=== PATIENT | female | born 1945 | race Caucasian/White ===

== ENCOUNTER 2017-01-19 15:06 | Emergency (ER) | payer MEDICARE, BC ==
--- NOTE | 2017-01-19 15:58 | Emergency Department Record ---
History of Present Illness - General Chief complaint: Cold Stated complaint: COLD Time Seen by Provider: 01/19/17 15:42 Source: Patient Mode of Arrival: Ambulatory Limitations: No limitations - History of Present Illness Initial comments: pt has a productive yellow cough and congestion. so does his . no sob or fever sweats or chills. MD complaint: Sore throat Onset/Timin -: Days(s) Location: Nose Severity: Mild Consistency: Intermittent Improves with: None Worsens with: None Associated Symptoms: Cough, Pain with swallowing, Rhinorrhea, Sore throat, Other - Related Data Home Medications Medication Instructions Recorded Confirmed Last Taken Levothyroxine Sodium 125 mcg PO DAILY 12/20/15 01/19/17 12/20/15 [Levothyroxine Sodium] Lorazepam [Lorazepam] 0.5 mg PO DAILY 12/20/15 01/19/17 12/20/15 Multivitamin [Daily Multiple 1 tab PO DAILY 12/20/15 01/19/17 12/20/15 Vitamin] Risperidone [Risperidone] 2 mg PO DAILY 12/20/15 01/19/17 12/20/15 Previous Rx's Medication Instructions Recorded Clindamycin HCl [Cleocin HCl] 300 mg PO Q6H #39 capsule 12/20/15 Fluconazole [Diflucan] 150 mg PO ONCE #1 tab 12/20/15 Azithromycin [Zithromax] 250 mg PO DAILY #6 tab 01/19/17 Benzonatate [Tessalon] 1 cap PO Q8H PRN #14 cap 01/19/17 Allergies Allergy/AdvReac Type Severity Reaction Status Date / Time Sulfa (Sulfonamide Allergy RASH Verified 01/19/17 15:42 Antibiotics) azithromycin AdvReac DIARRHEA Verified 01/19/17 15:42 cephalexin monohydrate AdvReac PT UNSURE Verified 01/19/17 15:42 [From Keflex] OF REACTION Travel Screening - Travel/Exposure Within Last 30 Days Have you traveled within the last 30 days?: No Review of Systems Reviewed: No additional complaints except as noted below Constitutional: Reports: As per HPI. Denies: Chills, Fever, Malaise, Night sweats, Weakness, Weight change Eyes: Reports: As per HPI. Denies: Eye discharge, Eye pain, Photophobia, Vision change ENT: Reports: As per HPI. Denies: Congestion, Dental pain, Ear pain, Epistaxis , Hearing loss, Throat pain Respiratory: Reports: As per HPI. Denies: Cough, Dyspnea, Hemoptysis, Stridor, Wheezes Cardiovascular: Reports: As per HPI. Denies: Arrhythmia, Chest pain, Dyspnea on exertion, Edema, Murmurs, Orthopnea, Palpitations, Paroxysmal nocturnal dyspnea, Rheumatic Fever, Syncope Endocrine: Reports: As per HPI. Denies: Fatigue, Heat or cold intolerance, Polydipsia, Polyuria Gastrointestinal: Reports: As per HPI. Denies: Abdominal pain, Constipation, Diarrhea, Hematemesis, Hematochezia, Melena, Nausea, Vomiting Genitourinary: Reports: As per HPI. Denies: Abnormal menses, Discharge, Dyspareunia, Dysuria, Frequency, Hematuria, Incontinence, Retention, Urgency Musculoskeletal: Reports: As per HPI. Denies: Arthralgia, Back pain, Gout, Joint swelling, Myalgia, Neck pain Skin: Reports: As per HPI. Denies: Bruising, Change in color, Change in hair/ nails, Lesions, Pruritus, Rash Neurological: Reports: As per HPI. Denies: Abnormal gait, Confusion, Headache, Numbness, Paresthesias, Seizure, Tingling, Tremors, Vertigo, Weakness Psychiatric: Reports: As per HPI. Denies: Anxiety, Auditory hallucinations, Depression, Homicidal thoughts, Suicidal thoughts, Visual hallucinations Hematological/Lymphatic: Reports: As per HPI. Denies: Anemia, Blood Clots, Easy bleeding, Easy bruising, Swollen glands Past Medical History - SOCIAL HISTORY Smoking Status: Never smoker Alcohol Use: None Drug Use: None - RESPIRATORY Hx Respiratory Disorders: No - NEURO Hx Neuro Disorders: Yes Hx Brain Tumor: Yes - GI Hx GI Disorders: No - Hx Genitourinary Disorders: No - ENDOCRINE Hx Endocrine Disorders: Yes Hx Thyroid Disease: Yes - MUSCULOSKELETAL Hx Musculoskeletal Disorders: No - PSYCH Hx Psych Problems: No - HEMATOLOGY/ONCOLOGY Hx Hematology/Oncology Disorders: No Family Medical History Any Significant Family History?: No Physical Exam - General General Appearance: Alert, Oriented x3, Cooperative, Mild distress - Head Head exam: Normal inspection - Eye Eye exam: Normal appearance, PERRL, EOMI Pupils: Normal accommodation - ENT ENT exam: Normal exam, Mucous membranes moist, Normal external ear exam, Normal orophraynx Ear exam: Normal external inspection. negative: External canal tenderness Nasal Exam: Normal inspection. negative: Discharge, Sinus tenderness Mouth exam: Normal external inspection, Tongue normal Teeth exam: Normal inspection. negative: Dental caries Throat exam: Normal inspection. negative: Tonsillar erythema, Tonsillar exudate - Neck Neck exam: Normal inspection, Full ROM. negative: Tenderness - Respiratory Respiratory exam: Normal lung sounds bilaterally. negative: Respiratory distress - Cardiovascular Cardiovascular Exam: Regular rate, Normal rhythm, Normal heart sounds - GI/Abdominal GI/Abdominal exam: Soft, Normal bowel sounds. negative: Tenderness - Rectal Rectal exam: Deferred - exam: Deferred - Extremities Extremities exam: Normal inspection, Full ROM, Normal capillary refill. negative: Tenderness - Back Back exam: Reports: Normal inspection, Full ROM. Denies: Muscle spasm, Rash noted, Tenderness - Neurological Neurological exam: Alert, CN II-XII intact, Normal gait, Oriented X3 - Psychiatric Psychiatric exam: Normal affect, Normal mood - Skin Skin exam: Dry, Intact, Normal color, Warm Course Vital Signs 01/19/17 15:38 Temperature 98.4 F Pulse Rate 91 H Respiratory 18 Rate Blood Pressure 124/64 Pulse Ox 98 - Reevaluation(s) Reevaluation #1: 01/19/17 15:58 pt prefers zithromax Disposition Disposition: Discharge Clinical Impression: Bronchitis Disposition: Home, Self-Care Condition: (1) Good Instructions: Acute Bronchitis (ED) Additional Instructions: follow up with family doctor. return sooner if worse. push fluids. Prescriptions: Azithromycin [Zithromax] 250 mg PO DAILY #6 tab Benzonatate [Tessalon] 1 cap PO Q8H PRN #14 cap PRN Reason: Cough Forms: Patient Portal Access
== END 2017-01-19 16:24 | disposition home or self-care (01) ==
LOC: ER 15:06
DX: J20.9 Acute bronchitis, unspecified (principal)
CPT/HCPCS: 99282

== ENCOUNTER 2017-01-30 06:50 | Emergency (ER) | payer MEDICARE, BC ==
[2017-01-30 07:25] LABS: URINE APPEARANCE CLEAR; URINE BILIRUBIN NEGATIVE (NEGATIVE); URINE BLOOD TRACE-I (NEGATIVE); URINE COLOR YELLOW; URINE GLUCOSE (UA) NEGATIVE (NEGATIVE); URINE KETONE NEGATIVE (NEGATIVE); URINE LEUKOCYTE ESTERASE SMALL (NEGATIVE); URINE NITRITE NEGATIVE (NEGATIVE); URINE PROTEIN NEGATIVE (NEGATIVE); URINE UROBILINOGEN 0.2 E.U./dL (0.20 - 1.00)
--- NOTE | 2017-01-30 07:25 | Emergency Department Record ---
History of Present Illness - General Chief Complaint: Cough Stated Complaint: COUGH/UTI/POISON LUIS Time Seen by Provider: 01/30/17 07:01 Mode of Arrival: Ambulatory - History of Present Illness Severity: Mild Severity scale (1-10): 2 Consistency: Intermittent - Related Data Home Medications Medication Instructions Recorded Confirmed Last Taken Levothyroxine Sodium 125 mcg PO DAILY 12/20/15 01/30/17 12/20/15 [Levothyroxine Sodium] Lorazepam [Lorazepam] 0.5 mg PO DAILY 12/20/15 01/30/17 12/20/15 Multivitamin [Daily Multiple 1 tab PO DAILY 12/20/15 01/30/17 12/20/15 Vitamin] Risperidone [Risperidone] 2 mg PO DAILY 12/20/15 01/30/17 12/20/15 Previous Rx's Medication Instructions Recorded Clindamycin HCl [Cleocin HCl] 300 mg PO Q6H #39 capsule 12/20/15 Fluconazole [Diflucan] 150 mg PO ONCE #1 tab 12/20/15 Benzonatate [Tessalon] 1 cap PO Q8H PRN #14 cap 01/19/17 Allergies Allergy/AdvReac Type Severity Reaction Status Date / Time Sulfa (Sulfonamide Allergy RASH Verified 01/30/17 07:17 Antibiotics) azithromycin AdvReac DIARRHEA Verified 01/30/17 07:17 cephalexin monohydrate AdvReac PT UNSURE Verified 01/30/17 07:17 [From Keflex] OF REACTION Travel Screening - Travel/Exposure Within Last 30 Days Have you traveled within the last 30 days?: No Past Medical History - SOCIAL HISTORY Smoking Status: Never smoker Alcohol Use: None Drug Use: None - RESPIRATORY Hx Respiratory Disorders: No - NEURO Hx Neuro Disorders: Yes Hx Brain Tumor: Yes - GI Hx GI Disorders: No - Hx Genitourinary Disorders: No - ENDOCRINE Hx Endocrine Disorders: Yes Hx Thyroid Disease: Yes - MUSCULOSKELETAL Hx Musculoskeletal Disorders: No - PSYCH Hx Psych Problems: No - HEMATOLOGY/ONCOLOGY Hx Hematology/Oncology Disorders: No Family Medical History Any Significant Family History?: No Course Vital Signs 01/30/17 07:10 Temperature 98.9 F Pulse Rate [ 90 Pulse Ox Probe] Respiratory 18 Rate Blood Pressure 138/69 [Left Arm] Pulse Ox 96 Disposition Forms: Patient Portal Access
[2017-01-30 07:33] LABS: URINE BACTERIA 2+
--- NOTE | 2017-01-30 07:35 | Emergency Department Record ---
History of Present Illness - General Chief Complaint: Cough Stated Complaint: COUGH/UTI/POISON LUIS Time Seen by Provider: 01/30/17 07:01 Mode of Arrival: Ambulatory - History of Present Illness Initial Comments: patient here with frequent urination which started yesterday AM and she was treated with zithromycin for 10 days and finished 2 days ago this was for bronchitis. Patient states she is still coughing and her had the same cough and is getting better. She also has lower abd pain bilateral slight discomfort. 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 Also had radiation. Appendectomy. Ankle fracture 2010. hypothyrioidism, respirdal for anxiety or depression. Poison luis patch on the left wrist and she is using calamine. 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 Severity: Mild Severity scale (1-10): 2 Consistency: Intermittent Associated Symptoms: Cough - Related Data Home Medications Medication Instructions Recorded Confirmed Last Taken Levothyroxine Sodium 125 mcg PO DAILY 12/20/15 01/30/17 12/20/15 [Levothyroxine Sodium] Lorazepam [Lorazepam] 0.5 mg PO DAILY 12/20/15 01/30/17 12/20/15 Multivitamin [Daily Multiple 1 tab PO DAILY 12/20/15 01/30/17 12/20/15 Vitamin] Risperidone [Risperidone] 2 mg PO DAILY 12/20/15 01/30/17 12/20/15 Previous Rx's Medication Instructions Recorded Clindamycin HCl [Cleocin HCl] 300 mg PO Q6H #39 capsule 12/20/15 Fluconazole [Diflucan] 150 mg PO ONCE #1 tab 12/20/15 Benzonatate [Tessalon] 1 cap PO Q8H PRN #14 cap 01/19/17 Levofloxacin [Levaquin] 500 mg PO DAILY #10 tablet 01/30/17 Allergies Allergy/AdvReac Type Severity Reaction Status Date / Time Sulfa (Sulfonamide Allergy RASH Verified 01/30/17 07:17 Antibiotics) azithromycin AdvReac DIARRHEA Verified 01/30/17 07:17 cephalexin monohydrate AdvReac PT UNSURE Verified 01/30/17 07:17 [From Flare Code] OF REACTION Travel Screening - Travel/Exposure Within Last 30 Days Have you traveled within the last 30 days?: No Review of Systems Reviewed: No additional complaints except as noted below Constitutional: Reports: As per HPI. Denies: Chills, Fever, Malaise, Night sweats, Weakness, Weight change Eyes: Reports: As per HPI. Denies: Eye discharge, Eye pain, Photophobia, Vision change ENT: Reports: As per HPI, Congestion. Denies: Dental pain, Ear pain, Epistaxis , Hearing loss, Throat pain Respiratory: Reports: As per HPI, Cough. Denies: Dyspnea, Hemoptysis, Stridor, Wheezes Cardiovascular: Reports: As per HPI. Denies: Arrhythmia, Chest pain, Dyspnea on exertion, Edema, Murmurs, Orthopnea, Palpitations, Paroxysmal nocturnal dyspnea, Rheumatic Fever, Syncope Endocrine: Reports: As per HPI. Denies: Fatigue, Heat or cold intolerance, Polydipsia, Polyuria Gastrointestinal: Reports: As per HPI, Abdominal pain (just slight discomfort ) . Denies: Constipation, Diarrhea, Hematemesis, Hematochezia, Melena, Nausea, Vomiting Genitourinary: Reports: As per HPI. Denies: Abnormal menses, Discharge, Dyspareunia, Dysuria, Frequency, Hematuria, Incontinence, Retention, Urgency Musculoskeletal: Reports: As per HPI. Denies: Arthralgia, Back pain, Gout, Joint swelling, Myalgia, Neck pain Skin: Reports: As per HPI. Denies: Bruising, Change in color, Change in hair/ nails, Lesions, Pruritus, Rash Neurological: Reports: As per HPI. Denies: Abnormal gait, Confusion, Headache, Numbness, Paresthesias, Seizure, Tingling, Tremors, Vertigo, Weakness Psychiatric: Reports: As per HPI. Denies: Anxiety, Auditory hallucinations, Depression, Homicidal thoughts, Suicidal thoughts, Visual hallucinations Hematological/Lymphatic: Reports: As per HPI. Denies: Anemia, Blood Clots, Easy bleeding, Easy bruising, Swollen glands Past Medical History - SOCIAL HISTORY Smoking Status: Never smoker Alcohol Use: None Drug Use: None - RESPIRATORY Hx Respiratory Disorders: No - NEURO Hx Neuro Disorders: Yes Hx Brain Tumor: Yes - GI Hx GI Disorders: No - Hx Genitourinary Disorders: No - ENDOCRINE Hx Endocrine Disorders: Yes Hx Thyroid Disease: Yes - MUSCULOSKELETAL Hx Musculoskeletal Disorders: No - PSYCH Hx Psych Problems: No - HEMATOLOGY/ONCOLOGY Hx Hematology/Oncology Disorders: No Family Medical History Any Significant Family History?: No Physical Exam - General General Appearance: Alert, Oriented x3, Cooperative, No acute distress - Head Head exam: Normal inspection - Eye Eye exam: Normal appearance, PERRL Pupils: Normal accommodation - ENT ENT exam: Normal exam, Mucous membranes moist, Normal external ear exam, Normal orophraynx, TM's normal bilaterally Ear exam: Normal external inspection. negative: External canal tenderness Nasal Exam: Normal inspection. negative: Discharge, Sinus tenderness Mouth exam: Normal external inspection, Tongue normal Teeth exam: Normal inspection. negative: Dental caries Throat exam: Normal inspection. negative: Tonsillar erythema, Tonsillar exudate - Neck Neck exam: Normal inspection, Full ROM. negative: Tenderness - Respiratory Respiratory exam: Normal lung sounds bilaterally. negative: Respiratory distress - Cardiovascular Cardiovascular Exam: Regular rate, Normal rhythm, Normal heart sounds - GI/Abdominal GI/Abdominal exam: Soft, Normal bowel sounds. negative: Distended, Guarding, Rebound, Rigid, Tenderness - Rectal Rectal exam: Deferred - exam: Deferred - Extremities Extremities exam: Normal inspection, Full ROM, Normal capillary refill. negative: Tenderness - Back Back exam: Reports: Normal inspection, Full ROM. Denies: Muscle spasm, Rash noted, Tenderness - Neurological Neurological exam: Alert, Normal gait, Oriented X3, Reflexes normal - Psychiatric Psychiatric exam: Normal affect, Normal mood - Skin Skin exam: Dry, Intact, Normal color, Warm Course Vital Signs 01/30/17 07:10 Temperature 98.9 F Pulse Rate [ 90 Pulse Ox Probe] Respiratory 18 Rate Blood Pressure 138/69 [Left Arm] Pulse Ox 96 Medical Decision Making - Data Complexity MDM Data: Labs Ordered and/or Reviewed (WBC 7,100, Urine WBC 3-5 and few sterling few epi few rbc), X-Ray Ordered and/or Reviewed (right lung infiltrate) - Lab Data Result diagrams: 01/30/17 07:54 01/30/17 07:54 Disposition Clinical Impression: Pneumonia Qualifiers: Pneumonia type: due to unspecified organism Laterality: right Lung location: middle lobe of lung Qualified Code(s): J18.1 - Lobar pneumonia, unspecified organism UTI (urinary tract infection) Qualifiers: Urinary tract infection type: acute cystitis Hematuria presence: without hematuria Qualified Code(s): N30.00 - Acute cystitis without hematuria Disposition: Home, Self-Care Condition: (1) Good Instructions: Community-acquired Pneumonia (ED), Urinary Tract Infection in Women (ED) Additional Instructions: follow up with family in 2 days return to ED if worse Prescriptions: Levofloxacin [Levaquin] 500 mg PO DAILY #10 tablet Forms: Patient Portal Access Time of Disposition: 09:03
[2017-01-30 07:58] LABS: BASO % 0.4 % (0-6); GRAN % 75.1 % (47-80); HEMATOCRIT 43.5 % (35.0-47.0); HEMOGLOBIN 13.9 gm/dl (11.6-16.0); LYMPH % 11.4 % (16-45); MEAN CELL VOLUME 93.1 fl (81-97); MEAN CORPUSCULAR HEMOGLOBIN 29.8 pg (27-33); MEAN PLATELET VOLUME 8.8 fl (7.4-10.4); MONO % 12.1 % (0-9); PLATELET COUNT 210 K/uL (130-400); RED BLOOD COUNT 4.67 M/uL (3.80-5.40); RED CELL DISTRIBUTION WIDTH 14.3 % (11.5-14.5); WHITE BLOOD COUNT W/O DIFF 7.1 K/uL (4.2-12.2)
[2017-01-30 08:13] LABS: ANION GAP 8.8 (7-16); BLOOD UREA NITROGEN 8 mg/dL (7-17); CARBON DIOXIDE 25.2 mmol/L (22-30); CREATININE 0.7 mg/dL (0.52-1.04); EST GLOMERULAR FILTRATION RATE > 60 ml/min; GLUCOSE,RANDOM 105 mg/dL (70-110)
[2017-01-30] MEDS ORDERED: CIPROFLOXACIN HCL 500 MG TABLET PO ONE (08:20)
--- NOTE | 2017-02-04 13:54 | RADIOLOGY REPORT ---
EXAM: CHEST, TWO VIEWS HISTORY: COUGH FOR TWENTY DAYS, ON ANTIBIOTICS. TECHNIQUE: PA and lateral views of the chest were obtained. Comparison: None. FINDINGS: The heart size is normal. There is some mild opacity just lateral to the inferior aspect of the right hilum probably representing a small amount of infiltrate in this location. Follow-up films suggested to demonstrate clearing. The left lung appears expanded and clear. No pleural effusion or pneumothorax evident. Thoracic curve to the right with hypertrophic spurring in the spine. IMPRESSION: 1. SOME MILD INFILTRATE LATERAL TO THE RIGHT HILUM PROBABLY REPRESENTING A PATCH OF INFILTRATE RATHER THAN SUBTLE MASS. FOLLOW-FILMS SUGGESTED TO DEMONSTRATE CLEARING. 2. THORACIC CURVE TO THE RIGHT WITH HYPERTROPHIC SPURRING IN THE SPINE. JOB NUMBER: [id number] MTDD
== END 2017-01-30 09:28 | disposition home or self-care (01) ==
LOC: ER 06:50
DX: J18.1 Lobar pneumonia, unspecified organism (principal); N30.00 Acute cystitis without hematuria; L23.7 Allergic contact dermatitis due to plants, except food
CPT/HCPCS: 71020; 80048; 81001; 85025; 99283; 99284

== ENCOUNTER 2018-07-23 05:00 | Emergency (ER) | payer MEDICARE, BC ==
[2018-07-23] MEDS: IPRATROPIUM/ALBUTEROL (0.5MG/3MG) NEB INH ONE (05:11)
--- NOTE | 2018-07-23 05:14 | Emergency Department Record ---
History of Present Illness - General Chief Complaint: Shortness of breath Stated Complaint: TRUPTI Time Seen by Provider: 07/23/18 05:01 Source: Patient, Family Mode of Arrival: Ambulatory Limitations: No limitations - History of Present Illness Initial Comments: 72 yo female presents with a sore throat and cough for one week. The cough has felt productive but she has not looked at the sputum. The throat has been sore the whole time as well. She is unaware of any fever. No vomiting or diarrhea. No chest pain. She reports she has a history of pneumonia. She did see her doctor on Thursday. She reports a chest XR was performed and she was told it was negative at that time. She has had swollen glands during the week as well. MD Complaint: Cough, Shortness of breath -: Week(s) Severity: Moderate Quality: Aching (sore throat) Consistency: Constant Improves With: Nothing Worsens With: Coughing Known History Of: Recurrent pneumonia Context: Recent URI Associated Symptoms: Cough Treatments Prior to Arrival: None - Related Data Home Medications Medication Instructions Recorded Confirmed Last Taken L.acidoph,Paracasei, B.lactis 1 cap PO DAILY 07/23/18 07/23/18 07/22/18 08:00 [Probiotic] Previous Rx's Medication Instructions Recorded Doxycycline Hyclate 100 mg PO BID #14 tab.dr 07/23/18 Prednisone [Prednisone 20Mg] 20 mg PO BID #10 tab 07/23/18 Allergies Allergy/AdvReac Type Severity Reaction Status Date / Time Sulfa (Sulfonamide Allergy RASH Verified 07/23/18 05:21 Antibiotics) azithromycin AdvReac DIARRHEA Verified 07/23/18 05:21 cephalexin monohydrate AdvReac PT UNSURE Verified 07/23/18 05:21 [From Keflex] OF REACTION Review of Systems Constitutional: Reports: Chills, Malaise. Denies: Fever Eyes: Denies: Eye discharge, Eye pain, Photophobia, Vision change ENT: Reports: Congestion, Throat pain Respiratory: Reports: Cough, Dyspnea, Wheezes Cardiovascular: Denies: Chest pain, Palpitations, Syncope Endocrine: Denies: Fatigue, Polydipsia, Polyuria Gastrointestinal: Denies: Abdominal pain, Diarrhea, Nausea, Vomiting Genitourinary: Denies: Dysuria, Urgency Musculoskeletal: Denies: Arthralgia, Back pain, Joint swelling, Myalgia Skin: Denies: Bruising, Change in color, Rash Neurological: Denies: Headache Psychiatric: Denies: Anxiety Hematological/Lymphatic: Reports: Swollen glands. Denies: Blood Clots, Easy bleeding, Easy bruising Past Medical History - SOCIAL HISTORY Smoking Status: Never smoker Drug Use: None - RESPIRATORY Hx Respiratory Disorders: No - NEURO Hx Neuro Disorders: Yes Hx Brain Tumor: Yes - GI Hx GI Disorders: No - Hx Genitourinary Disorders: No - ENDOCRINE Hx Endocrine Disorders: Yes Hx Thyroid Disease: Yes - MUSCULOSKELETAL Hx Musculoskeletal Disorders: No - PSYCH Hx Psych Problems: No - HEMATOLOGY/ONCOLOGY Hx Hematology/Oncology Disorders: No Physical Exam - General General Appearance: Alert, Oriented x3, Cooperative, No acute distress, Other ( No conversational dyspnea, occasional coarse harsh cough) Limitations: No limitations - Head Head exam: Atraumatic, Normal inspection - Eye Eye exam: Normal appearance. negative: Conjunctival injection - ENT ENT exam: Normal exam. negative: Normal orophraynx Ear exam: Normal external inspection Nasal Exam: Normal inspection Mouth exam: Normal external inspection Throat exam: Tonsillar erythema, Tonsillar exudate. negative: Tonsillomegaly, R peritonsillar mass, L peritonsillar mass - Neck Neck exam: Normal inspection, Lymphadenopathy, Tenderness - Respiratory Respiratory exam: Normal lung sounds bilaterally, Rhonchi, Wheezes. negative: Accessory muscle use, Decreased breath sounds, Prolonged expiratory, Respiratory distress - Cardiovascular Cardiovascular Exam: Regular rate, Normal rhythm, Normal heart sounds - GI/Abdominal GI/Abdominal exam: Soft, Tenderness - Rectal Rectal exam: Deferred - exam: Deferred - Extremities Extremities exam: Normal inspection. negative: Pedal edema - Back Back exam: Denies: CVA tenderness (R), CVA tenderness (L) - Neurological Neurological exam: Alert, Oriented X3 - Psychiatric Psychiatric exam: Normal affect, Normal mood - Skin Skin exam: Dry, Intact, Normal color, Warm Course - Reevaluation(s) Reevaluation #1: 07/23/18 05:41 No acute changes on the CBC The CXR was reviewed. Elongated lung singh otherwise negative for acute process. 07/23/18 05:46 No acute changes on the BMP The Strep screen is negative 07/23/18 05:51 The patient is very comfortable. No conversational dyspnea, she has normal work of breathing. DC home on Prednisone and doxycycline We discussed reasons to return, follow up and home care. Medical Decision Making - Lab Data Result diagrams: 07/23/18 05:08 07/23/18 05:08 Disposition Disposition: Discharge Clinical Impression: Pharyngitis, Bronchitis Disposition: Home, Self-Care Condition: (1) Good Instructions: Pharyngitis (ED), Acute Bronchitis (ED) Additional Instructions: Call your doctor for close follow up Return to the ER if worse or not improving in the next few days Take the Prednisone and the Doxycycline as directed Prescriptions: Doxycycline Hyclate 100 mg PO BID #14 tab. Prednisone [Prednisone 20Mg] 20 mg PO BID #10 tab Forms: Patient Portal Access Time of Disposition: 05:52 Quality - Quality Measures Quality Measures: N/A - Blood Pressure Screening Does Patient Have Any of the Following: No Blood Pressure Classification: Hypertensive Reading Systolic Measurement: 131 Diastolic Measurement: 96 Screening for High Blood Pressure: < Pre-Hypertensive BP, F/U Documented > [ [id number]] Pre-Hypertensive Follow-up Interventions: Referral to alternative/primary care provider.
[2018-07-23 05:33] LABS: BASO % 0.4 % (0-6); EOS % 1.9 % (0-6); GRAN % 66.7 % (47-80); HEMATOCRIT 45.3 % (35.0-47.0); HEMOGLOBIN 14.7 gm/dl (11.6-16.0); LYMPH % 23.1 % (16-45); MEAN CELL VOLUME 93.2 fl (81-97); MEAN CORPUSCULAR HEMOGLOBIN 30.2 pg (27-33); MEAN CORPUSCULAR HGB CONC 32.5 g/dl (32-36); MEAN PLATELET VOLUME 8.7 fl (7.4-10.4); MONO % 7.9 % (0-9); PLATELET COUNT 254 K/uL (130-400); RED BLOOD COUNT 4.86 M/uL (3.80-5.40); RED CELL DISTRIBUTION WIDTH 14.4 % (11.5-14.5); WHITE BLOOD COUNT W/O DIFF 7.4 K/uL (4.2-12.2)
[2018-07-23] MEDS: DOXYCYCLINE HYCLATE 100 MG CAPSULE PO ONE (05:39)
[2018-07-23] MEDS: METHYLPREDNISOLONE PF 125MG/VIAL IVP ONE (05:39)
[2018-07-23 05:41] LABS: BLOOD UREA NITROGEN 12 mg/dL (8-23); CREATININE 0.6 mg/dL (0.5-0.9); EST GLOMERULAR FILTRATION RATE > 60 mL/min
[2018-07-23 05:44] LABS: GLUCOSE,RANDOM 105 mg/dL (74-109)
--- NOTE | 2018-07-25 08:29 | RADIOLOGY REPORT ---
EXAM: CHEST 2 VIEWS HISTORY: SHORTNESS OF BREATH FOR THE PAST WEEK. PRODUCTIVE COUGH AND HOARSENESS. TECHNIQUE: PA and lateral upright views of the chest were obtained. COMPARISON: January 30, 2017. FINDINGS: The heart, mediastinum, and pulmonary vasculature are normal. The lungs are hyperinflated. There are no acute infiltrates or effusions. There is no pneumothorax. Degenerative changes and minor dextroconvex curvature are present within the thoracic spine. IMPRESSION: 1. NO ACUTE CHEST PATHOLOGY. 2. HYPERINFLATION. JOB NUMBER: [id number] [facility]
== END 2018-07-23 06:01 | disposition home or self-care (01) ==
LOC: ER 05:00
DX: J20.9 Acute bronchitis, unspecified (principal); J02.9 Acute pharyngitis, unspecified; R06.02 Shortness of breath; R59.0 Localized enlarged lymph nodes
CPT/HCPCS: 71046; 80048; 85025; 87880; 94640; 96374; 99284; J2930

== ENCOUNTER 2019-08-23 08:27 | Emergency (ER) | payer MEDICARE, BC ==
--- NOTE | 2019-08-23 08:51 | Emergency Department Record ---
History of Present Illness - General Chief complaint: Cold Stated complaint: COLD Time Seen by Provider: 08/23/19 08:35 Source: Patient Mode of Arrival: Ambulatory Limitations: No limitations - History of Present Illness Initial comments: The patient is here due to a cough and congestion and runny nose for 5 days. She denies any CP, MEDINA, fever, ST, or TRUPTI but her ears do feel plugged. The patient's is ill with the exact same thing. She is concerned she has a sinus infection. MD complaint: Other Onset/Timin -: Days(s) Associated Symptoms: Cough - Related Data Previous Rx's Medication Instructions Recorded Cetirizine HCl/Pseudoephedrine 1 each PO BID #14 tab.er.12h 08/23/19 [Zyrtec-D Tablet] Doxycycline Monohydrate [Mondoxyne 100 mg PO BID 7 Days #14 capsule 08/23/19 Nl] Fluticasone Propionate [Flonase] 2 spray EACH NARES DAILY #1 bottle 08/23/19 Allergies Allergy/AdvReac Type Severity Reaction Status Date / Time Sulfa (Sulfonamide Allergy RASH Verified 08/23/19 08:35 Antibiotics) azithromycin AdvReac DIARRHEA Verified 08/23/19 08:35 cephalexin monohydrate AdvReac PT UNSURE Verified 08/23/19 08:35 [From Keflex] OF REACTION Travel Screening - Travel/Exposure Within Last 30 Days Have you traveled within the last 30 days?: No Review of Systems Constitutional: Reports: Malaise. Denies: Chills, Fever ENT: Reports: Congestion Respiratory: Reports: Cough. Denies: Dyspnea Cardiovascular: Denies: Chest pain Past Medical History - SOCIAL HISTORY Smoking Status: Never smoker Alcohol Use: None Drug Use: None - RESPIRATORY Hx Respiratory Disorders: Yes Hx Pneumonia: Yes - CARDIOVASCULAR Hx Cardio Disorders: No - NEURO Hx Neuro Disorders: Yes Hx Brain Tumor: Yes - GI Hx GI Disorders: Yes Hx Irritable Bowel: Yes - Hx Genitourinary Disorders: Yes Hx Bladder Problem: Yes (incontinence) - ENDOCRINE Hx Endocrine Disorders: Yes Hx Thyroid Disease: Yes - MUSCULOSKELETAL Hx Musculoskeletal Disorders: No - PSYCH Hx Psych Problems: No - HEMATOLOGY/ONCOLOGY Hx Hematology/Oncology Disorders: No Family Medical History Any Significant Family History?: No Physical Exam - General General Appearance: Alert, Oriented x3, Cooperative, No acute distress - Head Head exam: Atraumatic, Normocephalic, Normal inspection - Eye Eye exam: Normal appearance, PERRL, EOMI - ENT ENT exam: Normal exam, Mucous membranes moist, Normal external ear exam, Normal orophraynx, TM's normal bilaterally Throat exam: Normal inspection. negative: Tonsillar erythema, Tonsillar exudate - Neck Neck exam: Normal inspection, Full ROM. negative: Lymphadenopathy, Meningismus, Tenderness - Respiratory Respiratory exam: Normal lung sounds bilaterally. negative: Accessory muscle use, Respiratory distress, Rhonchi, Stridor, Wheezes - Cardiovascular Cardiovascular Exam: Regular rate, Normal rhythm, Normal heart sounds - GI/Abdominal GI/Abdominal exam: Soft, Normal bowel sounds. negative: Tenderness - Extremities Extremities exam: Normal inspection, Full ROM, Normal capillary refill. negative: Tenderness - Neurological Neurological exam: Alert. negative: Motor sensory deficit Course Vital Signs 08/23/19 08:32 Temperature 97.6 F Pulse Rate 74 Respiratory 18 Rate Blood Pressure 152/83 Pulse Ox 99 - Reevaluation(s) Reevaluation #1: I did discuss the fact that I strongly believe the patient has a viral URI. She is to take the Zyrtec-D and FLonase and ONLY to use the Doxycycline if not better in 7 days or for worsening symptoms. 08/23/19 08:53 Disposition Disposition: Discharge Clinical Impression: URI, acute Disposition: Home, Self-Care Condition: (2) Stable Instructions: Cold Symptoms (ED) Additional Instructions: Please take the Zyrtec-D and Flonase as directed and ONLY take the Doxycycline if not better in a week. Please see your family doctor if not better in 2 weeks. Prescriptions: Fluticasone Propionate [Flonase] 2 spray EACH NARES DAILY #1 bottle Doxycycline Monohydrate [Mondoxyne Nl] 100 mg PO BID 7 Days #14 capsule Cetirizine HCl/Pseudoephedrine [Zyrtec-D Tablet] 1 each PO BID #14 tab.er.12h Forms: Patient Portal Access Time of Disposition: 08:51 Quality - Quality Measures Quality Measures: N/A - Blood Pressure Screening View Details: Yes Does Patient Have Any of the Following: No Blood Pressure Classification: Pre-Hypertensive BP Reading Systolic Measurement: 152 Diastolic Measurement: 83 Screening for High Blood Pressure: < Pre-Hypertensive BP, F/U Documented > [[id number]] Pre-Hypertensive Follow-up Interventions: Referral to alternative/primary care provider.
== END 2019-08-23 09:03 | disposition home or self-care (01) ==
LOC: ER 08:27
DX: J06.9 Acute upper respiratory infection, unspecified (principal); R05 Cough
CPT/HCPCS: 99283